=== PATIENT | female | born 1960 | race Caucasian/White ===

== ENCOUNTER 2020-07-02 18:28 | Inpatient (IN) | payer OTHER, SELFPAY ==
[2020-07-02 19:23] VITALS: BP 101/62; PULSE 112; RESP 14; TEMP 36.7; O2SAT 95; BMI 21.2
--- NOTE | 2020-07-02 20:28 | XRR_ITS ---
PROCEDURE INFORMATION: Exam: XR Chest, 1 View Exam date and time: 07/02/2020 9:56 PM Age: 59 years old Clinical indication: Other: AMS; Patient HX: PT unable to give history TECHNIQUE: Imaging protocol: XR of the chest Views: 1 view. COMPARISON: No relevant prior studies available. FINDINGS: Lungs: Unremarkable. No consolidation. Pleural space: Unremarkable. No pleural effusion. No pneumothorax. Heart/Mediastinum: Unremarkable. No cardiomegaly. Bones/joints: Unremarkable. XR/XR chest 1V portable [id number] IMPRESSION: No acute findings.
--- NOTE | 2020-07-02 20:28 | CTR_ITS ---
PROCEDURE INFORMATION: Exam: CT Head Without Contrast Exam date and time: 07/02/2020 8:35 PM Age: 59 years old Clinical indication: Altered mental status/memory loss; Confusion or disorientation; Patient HX: Ams/dementia/non-verbal TECHNIQUE: Imaging protocol: Computed tomography of the head without contrast. Radiation optimization: All CT scans at this facility use at least one of these dose optimization techniques: automated exposure control; mA and/or kV adjustment per patient size (includes targeted exams where dose is matched to clinical indication); or iterative reconstruction. COMPARISON: No relevant prior studies available. RADIATION DOSE METRICS: Total DLP (mGy-cm): 752.59 FINDINGS: Brain: No CT evidence for acute ischemia, mass or hemorrhage. Generalized sulcal widening and ventricular enlargement are due to white matter volume loss which is advanced for the patient's age. Cerebral ventricles: Enlargement due to white matter volume loss. Bones/joints: Unremarkable. No acute fracture. Paranasal sinuses: Several mucous retention cysts and/or polyps in the paranasal sinuses. Mastoid air cells: Visualized mastoid air cells are well aerated. Soft tissues: Unremarkable. CT/CT head wo con* [id number] IMPRESSION: 1. No acute intracranial findings. 2. Atrophy Radiation Dose CTDIVOL = (mGy): DLP = 752.59 (mGy-cm)
--- NOTE | 2020-07-02 20:29 | ECG_ITS ---
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 Measurements Intervals [place] Rate: 70 P: 73 CA: 186 QRS: 72 QRSD: 66 T: 57 QT: 377 QTc: 408 Interpretive Statements SINUS RHYTHM POSSIBLE RIGHT ATRIAL ENLARGEMENT [0.25mV P WAVE] MODERATE T-WAVE ABNORMALITY, CONSIDER ANTERIOR ISCHEMIA [-0.1+ mV T WAVE IN V3/V4] MODERATE T-WAVE ABNORMALITY, CONSIDER INFERIOR ISCHEMIA [-0.1+ mV T WAVE IN II/aVF] No previous ECG available for comparison Electronically Signed On 07-03-2020 22:20:35 OCCUPATIONAL HEALTH SPECIALIST by Georgette Jasso M.D. [id number]
[2020-07-02] MEDS: sodium chloride 0.9% 1,000 ML 999 ML IV (21:05)
[2020-07-02 21:13] LABS: Basophils # 0.1 10^3/uL (0.0-0.1); Basophils % 0.6 %; Eosinophils % 0.1 %; Hematocrit 56.3 % (37.0-47.0); Hemoglobin 17.2 g/dL (11.5-15.3); Lymphocytes # 1.3 10^3/uL (0.8-4.8); Lymphocytes % 16.2 %; Mean Corpuscular HGB Conc 30.6 g/dL (30.0-36.0); Mean Corpuscular Hemoglobin 27.2 pg (28.0-34.0); Mean Corpuscular Volume 89.1 fL (81-99); Mean Platelet Volume 9.7 fL (7.4-10.4); Monocytes # 0.6 10^3/uL (0.2-0.9); Monocytes % 7.5 %; Neutrophils # 6.14 10^3/uL (1.8-7.7); Neutrophils % 75.4 %; Nucleated Red Blood Cells % 0 %; Platelet Count 347 10^3/cmm (130-400); Red Blood Count 6.32 10^6/uL (4.1-5.3); Red Cell Distribution Width 13.5 % (12.1-15.1); White Blood Count 8.2 10^3/uL (4.0-10.0)
[2020-07-02 21:26] LABS: Glucose Point of Care 102 mg/dL (70-110)
[2020-07-02 21:35] LABS: Lactic Sepsis W/Reflex 1.6 mmol/L (0.5-2.2)
[2020-07-02 21:36] LABS: Alanine Aminotransferase 14 U/L (0-33); Albumin Level 4.2 g/dL (3.5-5.2); Alkaline Phosphatase 66 IU/L (35-105); Aspartate Amino Transferase 13 U/L (0-32); Blood Urea Nitrogen 27 mg/dL (6-20); Calcium 9.9 mg/dL (8.5-10.5); Carbon Dioxide 25 mmol/L (22-29); Chloride 120 mmol/L (98-107); Globulin 2.9 g/dL (1.3-4.6); Glomerular Filtration Rate 56.7 mL/min (90-130); Glucose 124 mg/dL (65-115); Lipase 26 U/L (13-60); Magnesium 2.8 mg/dL (1.7-2.3); Osmolality Calculated 337 mOsm/kg (285-295); Sodium 160 mmol/L (136-145); Total Bilirubin 0.5 mg/dL (0.15-1.2); Total Protein 7.1 g/dL (6.6-8.7)
[2020-07-02 21:39] LABS: Anion Gap 18.9 (5-19); Potassium 3.9 mmol/L (3.5-5.1); Troponin(5th) Baseline 30 ng/L (0-10)
[2020-07-02 21:55] VITALS: BP 115/57; PULSE 74; RESP 17; O2SAT 98
--- NOTE | 2020-07-02 22:14 | ED_ITS ---
HPI - Altered Mental Status General: Chief Complaint: Altered Mental Status Stated Complaint: hasn't eatin or drank Time Seen by Provider: 07/02/20 20:15 History of Present Illness: HPI narrative: This patient is a 59-year-old female who presents today with her as her historian. She has a history of frontal temporal dementia which has been quite severe and progressive. She is nonverbal and is cared for at home by her and [id number]. She had been doing pretty well up until Thursday of this past week when she had a sudden change in her mental status. She suddenly would not eat and has not been able to get up and walk around like she normally does. She is been incontinent of urine and the urine has had a foul odor. She has been on antibiotics for that fairly recently. She also has a couple of teeth that have cavities in them and was on antibiotics for that before the UTI. She has not been able to have this fixed because the dentist was not able to get her to be still or cooperate and she is can have to have them done under sedation. Her said that even when she is doing well they have to feed her as she cannot coordinate the effort to eat. Normally though she has a good appetite and eats well and has no trouble swallowing. He said in these last several days they have put food in her mouth but it just falls back out. She does not seem interested at all in eating. She has taken just a little bit of Pedialyte today. She has not had a fever. She has not had a cough or shortness of breath. She does not act like she is in pain but her notes that she has a frighteningly high pain tolerance. complaint: altered mental status and weakness Onset (ago): day(s) (5) Timing confirmed by: spouse and caregiver Severity: severe Consistency of symptoms: Getting Worse Review of Systems General: Reports: ROS unobtainable due to medical condition PFSH ED PFSH: Medical History (Updated 07/02/20 @ 22:17 by Demi Connors MD) Frontotemporal dementia Hypothyroid Physical Exam Const: COMMON NORMALS: no acute distress HENMT: HEAD & SCALP: normal to inspection FACE & SINUS IMAGES: 1. Tenderness and swelling MOUTH: other (Was not able to get the patient to open her mouth to examine her teeth or t) TEETH & GINGIVA: Yes other (I would not) THROAT: other (The submandibular area is soft and nontender) Eye: GENERAL EYE: appearance normal, both eyes and all related structures Neck/C-Spine: COMMON NORMALS: supple, no meningeal signs and no JVD Chest: COMMONS NORMALS: normal inspection of the chest Resp: COMMON NORMALS: normal respiratory effort, No use of accessory muscles and clear to auscultation bilaterally AUSCULTATION: clear to auscultation bilaterally Cardio: COMMON NORMALS: no JVD, regular rate, regular rhythm and No murmurs present (Cardio) RATE: regular rate RHYTHM: regular rhythm GI: COMMON NORMALS: Normal to inspection, nondistended, normoactive bowel sounds present, Soft to palpation and non-tender INSPECTION: Yes normal to inspection AUSCULTATION: Yes normoactive bowel sounds PALPATION: Yes Soft to palpation Back/Pelvis: COMMON NORMALS: thoracic and lumbar spine normal to inspection Extremity: COMMON NORMALS: normal to inspection Neuro: MENINGEAL SIGNS: Yes no meningeal signs SPEECH: Other neuro speech findings (Nonverbal) GAIT: Yes Unable to assess gait MOTOR EXAM: No no tremor noted and Other motor observations present (She is noted to move both upper extremities and both lower extremities. Sh) Psych: COMMON NORMALS: mental status grossly normal, cooperative and normal affect Skin: COMMON NORMALS: no rashes or lesions noted and turgor normal GENERAL SKIN EXAM: no rashes or lesions noted and turgor normal Course ED course: Patient will be admitted to the ICU. Her sodium is 160. Chloride is 120. Renal function is normal. White count is normal. She also has evidence of a UTI. She will be given half-normal saline at 150 mL/h for slow correction of her sodium elevation. I called and spoke to her Bill at [phone]. I let them know that she would be staying overnight and what the plan of care was. Vital Signs: Vital signs: Vital Signs Temperature 98.0 F 07/02/20 19:23 Pulse Rate 74 07/02/20 22:43 Respiratory Rate 17 07/02/20 22:43 Blood Pressure 119/57 07/02/20 22:43 Pulse Oximetry 96 07/02/20 22:43 MDM - Altered Mental Status Lab Data: Labs: Lab Results 07/02/20 07/02/20 07/02/20 Range/Units 21:00 21:00 21:00 WBC 8.2 (4.0-10.0) 10^3/ uL RBC 6.32 H (4.1-5.3) 10^6/u L Hgb 17.2 H (11.5-15.3) g/dL Hct 56.3 H (37.0-47.0) % MCV 89.1 (81-99) fL MCH 27.2 L (28.0-34.0) pg MCHC 30.6 (30.0-36.0) g/dL RDW 13.5 (12.1-15.1) % Plt Count 347 (130-400) 10^3/c mm MPV 9.7 (7.4-10.4) fL Neut % (Auto) 75.4 % Lymph % (Auto) 16.2 % [place] % (Auto) 7.5 % Eos % (Auto) 0.1 % Baso % (Auto) 0.6 % Neut # (Auto) 6.14 (1.8-7.7) 10^3/u L Lymph # (Auto) 1.3 (0.8-4.8) 10^3/u L [place] # (Auto) 0.6 (0.2-0.9) 10^3/u L Eos # (Auto) 0.0 (0.0-0.8) 10^3/u L Baso # (Auto) 0.1 (0.0-0.1) 10^3/u L Nucleated RBC % (a uto) 0 % Nucleated RBCs # 0.0 /100WBC Sodium 160 H (136-145) mmol/L Potassium 3.9 (3.5-5.1) mmol/L Chloride 120 H (98-107) mmol/L Carbon Dioxide 25 (22-29) mmol/L Anion Gap 18.9 (5-19) BUN 27 H (6-20) mg/dL Creatinine 1.0 H (0.5-0.9) mg/dL GFR Calculation 56.7 L (90-130) mL/min Glucose 124 H (65-115) mg/dL POC Glucose (70-110) mg/dL Calculated Osmolal ity 337 H (285-295) mOsm/k g Lactic Acid 1.6 (0.5-2.2) mmol/L Calcium 9.9 (8.5-10.5) mg/dL Magnesium 2.8 H (1.7-2.3) mg/dL Total Bilirubin 0.5 (0.15-1.2) mg/dL AST 13 (0-32) U/L ALT 14 (0-33) U/L Alkaline Phosphata se 66 (35-105) IU/L Troponin T Baselin e (0-10) ng/L Total Protein 7.1 (6.6-8.7) g/dL Albumin 4.2 (3.5-5.2) g/dL Globulin 2.9 (1.3-4.6) g/dL Lipase 26 (13-60) U/L TSH (0.27-4.20) uIU/ mL Free T4 (0.82-1.77) ng/d L Urine Color (Yellow) Urine Appearance (CLEAR) Urine pH (5-7) Ur Specific Gravit y (1.005-1.030) Urine Protein (Negative) Urine Glucose (UA) (Normal) Urine Ketones (Negative) Urine Blood (Negative) Urine Nitrate (Negative) Urine Bilirubin (Negative) Urine Urobilinogen (Negative) mg/dL Ur Leukocyte Stephanie ase (Negative) Urine RBC (0-2) /hpf Urine WBC (0-5) /hpf Ur Squamous Epith Cells (0-5) /hpf Amorphous Sediment Urine Bacteria (NONE) /hpf Urine Mucus /hpf 07/02/20 07/02/20 07/02/20 Range/Units 21:00 21:00 21:24 WBC (4.0-10.0) 10^3/ uL RBC (4.1-5.3) 10^6/u L Hgb (11.5-15.3) g/dL Hct (37.0-47.0) % MCV (81-99) fL MCH (28.0-34.0) pg MCHC (30.0-36.0) g/dL RDW (12.1-15.1) % Plt Count (130-400) 10^3/c mm MPV (7.4-10.4) fL Neut % (Auto) % Lymph % (Auto) % [place] % (Auto) % Eos % (Auto) % Baso % (Auto) % Neut # (Auto) (1.8-7.7) 10^3/u L Lymph # (Auto) (0.8-4.8) 10^3/u L [place] # (Auto) (0.2-0.9) 10^3/u L Eos # (Auto) (0.0-0.8) 10^3/u L Baso # (Auto) (0.0-0.1) 10^3/u L Nucleated RBC % (a uto) % Nucleated RBCs # /100WBC Sodium (136-145) mmol/L Potassium (3.5-5.1) mmol/L Chloride (98-107) mmol/L Carbon Dioxide (22-29) mmol/L Anion Gap (5-19) BUN (6-20) mg/dL Creatinine (0.5-0.9) mg/dL GFR Calculation (90-130) mL/min Glucose (65-115) mg/dL POC Glucose 102 (70-110) mg/dL Calculated Osmolal ity (285-295) mOsm/k g Lactic Acid (0.5-2.2) mmol/L Calcium (8.5-10.5) mg/dL Magnesium (1.7-2.3) mg/dL Total Bilirubin (0.15-1.2) mg/dL AST (0-32) U/L ALT (0-33) U/L Alkaline Phosphata se (35-105) IU/L Troponin T Baselin e 30 H (0-10) ng/L Total Protein (6.6-8.7) g/dL Albumin (3.5-5.2) g/dL Globulin (1.3-4.6) g/dL Lipase (13-60) U/L TSH 2.63 (0.27-4.20) uIU/ mL Free T4 1.12 (0.82-1.77) ng/d L Urine Color (Yellow) Urine Appearance (CLEAR) Urine pH (5-7) Ur Specific Gravit y (1.005-1.030) Urine Protein (Negative) Urine Glucose (UA) (Normal) Urine Ketones (Negative) Urine Blood (Negative) Urine Nitrate (Negative) Urine Bilirubin (Negative) Urine Urobilinogen (Negative) mg/dL Ur Leukocyte Stephanie ase (Negative) Urine RBC (0-2) /hpf Urine WBC (0-5) /hpf Ur Squamous Epith Cells (0-5) /hpf Amorphous Sediment Urine Bacteria (NONE) /hpf Urine Mucus /hpf 07/02/ Range/Units 22:23 WBC (4.0-10.0) 10^3/ uL RBC (4.1-5.3) 10^6/u L Hgb (11.5-15.3) g/dL Hct (37.0-47.0) % MCV (81-99) fL MCH (28.0-34.0) pg MCHC (30.0-36.0) g/dL RDW (12.1-15.1) % Plt Count (130-400) 10^3/c mm MPV (7.4-10.4) fL Neut % (Auto) % Lymph % (Auto) % [place] % (Auto) % Eos % (Auto) % Baso % (Auto) % Neut # (Auto) (1.8-7.7) 10^3/u L Lymph # (Auto) (0.8-4.8) 10^3/u L [place] # (Auto) (0.2-0.9) 10^3/u L Eos # (Auto) (0.0-0.8) 10^3/u L Baso # (Auto) (0.0-0.1) 10^3/u L Nucleated RBC % (a uto) % Nucleated RBCs # /100WBC Sodium (136-145) mmol/L Potassium (3.5-5.1) mmol/L Chloride (98-107) mmol/L Carbon Dioxide (22-29) mmol/L Anion Gap (5-19) BUN (6-20) mg/dL Creatinine (0.5-0.9) mg/dL GFR Calculation (90-130) mL/min Glucose (65-115) mg/dL POC Glucose (70-110) mg/dL Calculated Osmolal ity (285-295) mOsm/k g Lactic Acid (0.5-2.2) mmol/L Calcium (8.5-10.5) mg/dL Magnesium (1.7-2.3) mg/dL Total Bilirubin (0.15-1.2) mg/dL AST (0-32) U/L ALT (0-33) U/L Alkaline Phosphata se (35-105) IU/L Troponin T Baselin e (0-10) ng/L Total Protein (6.6-8.7) g/dL Albumin (3.5-5.2) g/dL Globulin (1.3-4.6) g/dL Lipase (13-60) U/L TSH (0.27-4.20) uIU/ mL Free T4 (0.82-1.77) ng/d L Urine Color Yellow (Yellow) Urine Appearance Cloudy (CLEAR) Urine pH 5.0 (5-7) Ur Specific Gravit y 1.020 (1.005-1.030) Urine Protein Trace (Negative) Urine Glucose (UA) Norm (Normal) Urine Ketones 1+ H (Negative) Urine Blood 2+ H (Negative) Urine Nitrate Positive H (Negative) Urine Bilirubin Neg (Negative) Urine Urobilinogen Norm (Negative) mg/dL Ur Leukocyte Stephanie ase Trace H (Negative) Urine RBC 0-4 H (0-2) /hpf Urine WBC 25-40 H (0-5) /hpf Ur Squamous Epith Cells None (0-5) /hpf Amorphous Sediment Not Reportable Urine Bacteria 3+ H (NONE) /hpf Urine Mucus 2+ /hpf Discharge Plan Discharge Condition: Good Prescriptions: No Action olanzapine 2.5 mg tablet 2.5 mg PO DAILY RF: 0 levothyroxine [Euthyrox] 25 mcg tablet 12.5 mcg PO DAILY RF: 0 Coding Level of Care Code ED Waiter/Waitress Counter for Chg Fwd Exam Comprehensive
[2020-07-02 22:34] LABS: Free T4 Free Thyroxine 1.12 ng/dL (0.82-1.77); Thyroid Stimulating Hormone 2.63 uIU/mL (0.27-4.20)
[2020-07-02 22:43] VITALS: BP 119/57; PULSE 74; RESP 17; O2SAT 96
[2020-07-02 22:56] LABS: Glucose Urine UA Norm (Normal); Protein Urine Trace (Negative); Urine Appearance Cloudy (CLEAR); Urine Color Yellow (Yellow)
[2020-07-02 22:57] LABS: Add Urine Microscopic? YES; Bilirubin Urine Neg (Negative); Blood Urine 2+ (Negative); Ketones Urine 1+ (Negative); Leukocyte Esterase Urine Trace (Negative); Nitrate Urine Positive (Negative); RBC Urine 0-4 /hpf (0-2); Urobilinogen Urine Norm (Negative)
[2020-07-02 22:58] LABS: Add Urine Culture? Yes; Bacteria Urine 3+ /hpf; Mucus Urine 2+ /hpf; WBC Urine 25-40 /hpf (0-5)
[2020-07-02 23:34] LABS: Glucose Point of Care 118 mg/dL (70-110)
[2020-07-03] VITALS (52 sets, daily range): BP systolic 79–144; BP diastolic 50–107; PULSE 40–150; RESP 12–22; TEMP 36.4–37.1; O2SAT 89–100
[2020-07-03] MEDS: cefTRIAXone 1,000 MG in sodium chloride 0.9% (plus) 50 ML 100 MG IV
[2020-07-03 00:36] LABS: Troponin 5 2HR 33.25 ng/L (0-10); Troponin 5 2HR Delta 3.25 ABS# (0-10)
[2020-07-03] MEDS: sodium chloride 0.45% 1,000 ML 150 ML IV ×4 (01:03→14:12)
--- NOTE | 2020-07-03 01:11 | PC.NURSE ---
Report called to Angie GUTIERREZ in ICU
--- NOTE | 2020-07-03 01:36 | P.HP_ITS ---
Providers/Chief Complaint Admitting Physician: Horace Miner MD Chief Complaint: hasn't eatin or drank History of Present Illness Bee Mcneal is a 59 year old female with past medical history of hypothyroid, progressively worsening frontotemporal dementia, nonverbal at baseline,cared for at home by her and [id number]. She had been doing pretty well up until Thursday of this past week when she had a sudden change in her mental status. She suddenly would not eat and has not been able to get up and walk around like she normally does. She is been incontinent of urine and the urine has had a foul odor.She has been on antibiotics for that fairly recently. She also has a couple of teeth that have cavities in them and was on antibiotics for that before the UTI. She has not been able to have this fixed because the d entist was not able to get her to be still or cooperate and she is can have to have them done under sedation. Her said that even when she is doing well they have to feed her as she cannot coordinate the effort to eat. Normally though she has a good appetite and eats well and has no trouble swallowing. He said in these last several days they have put food in her mouth but it just falls back out. Upon arrival in the ER she was worked up for acute encephalopathy. ECA Course: CT head without contrast: No acute intracranial findings. EKG: SINUS RHYTHM POSSIBLE RIGHT ATRIAL ENLARGEMENT [0.25mV P WAVE] MODERATE T-WAVE ABNORMALITY, CONSIDER ANTERIOR ISCHEMIA [-0.1+ mV T WAVE IN V3/V4] MODERATE T-WAVE ABNORMALITY, CONSIDER INFERIOR ISCHEMIA [-0.1+ mV T WAVE IN II/aVF] X-ray chest: No acute infiltrates, no pulmonary vascular congestion BMP: Serum sodium: 160 TSH: 2.6 UA: Nitrite positive, leukocyte Estrace positive, WBC: 25-40 Review of Systems Narrative: Review of system could not be obtained. Medications/Allergies Home Medications Medication Instructions Recorded Confirmed Last Taken Type levothyroxine [Euthyrox] 12.5 mcg PO DAILY 07/02/20 07/02/20 Unknown History olanzapine 2.5 mg PO DAILY 07/02/20 07/02/20 07/01/20 History Allergies Allergy/AdvReac Type Severity Reaction Status Date / Time aspirin Allergy Unknown Verified 07/02/20 19:14 Sulfa (Sulfonamide Allergy Unknown Verified 07/02/20 19:14 Antibiotics) PFSH Acute PFSH: Medical History Frontotemporal dementia Hypothyroid Vitals/I&O/Wt Last Vital Signs Temp 98.0 F 07/02/20 19:23 Pulse 91 07/03/20 01:11 Resp 18 07/03/20 01:11 BP 134/107 07/03/20 01:11 Pulse Ox 97 07/03/20 01:11 07/02/20 07/02/20 07/03/20 14:59 22:59 06:59 Intake Total 1050 / 1050 Balance 1050 / 1050 Weight last 48 hrs Weight 49.442 kg Physical Exam HENMT: COMMON NORMALS: normocephalic and atraumatic Eye: COMMON NORMALS: no scleral icterus GENERAL EYE: appearance normal, both eyes and all related structures Chest: COMMONS NORMALS: normal inspection of the chest and normal palpation of entire chest wall CHEST: Yes Symmetrical chest wall rise Resp: COMMON NORMALS: normal respiratory effort, No retractions, No use of accessory muscles and clear to auscultation bilaterally EFFORT & INSPECTION: Yes symmetric chest movement AUSCULTATION: clear to auscultation bilaterally Cardio: COMMON NORMALS: regular rate, regular rhythm, S1 normal heart sound present, S2 normal heart sound present, No gallops present (Cardio), No murmurs present (Cardio), No rub (Cardio) and Peripheral pulses 2+ throughout RATE: regular rate RHYTHM: regular rhythm HEART SOUNDS: S1 normal heart sound present and S2 normal heart sound present PERIPHERAL PULSES: Peripheral pulses 2+ throughout GI: COMMON NORMALS: Normal to inspection, nondistended, normoactive bowel sounds present, Soft to palpation, non-tender, No hepatosplenomegaly present and no masses AUSCULTATION: Yes normoactive bowel sounds PALPATION: Yes Soft to palpation and Yes No hepatosplenomegaly present RECTAL EXAM: deferred Extremity: COMMON NORMALS: no clubbing, cyanosis or edema and no pedal edema Urinary Catheter Management^: Dobbins: Cath Placed During This Visit: yes Reason for Continuing Indwelling Catheter: Acute Urinary Retention or Obstruction Urinary Catheter Date of Insertion: 07/02/20 Urinary Catheter Time of Insertion: 22:32 Data : 07/03/20 02:55 07/03/20 02:55 A&P Assessment and plan (1) Acute encephalopathy: Acute metabolic encephalopathy likely secondary to hypernatremia secondary to severe volume depletion secondary to poor oral intake. Currently on 150 cc/h half-normal saline. Monitor BMP every 4 hours. Status: Acute (2) Hypothyroidism: Continue levothyroxine 12.5 mcg Status: Acute (3) Acute hypernatremia: Plan as # 1 Status: Acute (4) UTI (urinary tract infection): Continue ceftriaxone 1 g IV every 24 hours daily Status: Acute (5) Frontotemporal dementia: Status: Acute Additional A&P Information DVT prophylaxis: Lovenox 40 subcu daily CODE STATUS: Full code Disposition: Home Attestations Medical Necessity Statement*: Patient needs to be in hospital for management of acute encephalopathy. Anticipated length of stay greater than 2 midnights. Coding Level of Care Code Acute Armor Reconnaissance Vehicle Driver for [facility] Fwd Diagnoses Acute encephalopathy G93.40 Hypothyroidism E03.9 Acute hypernatremia E87.0 UTI (urinary tract infection) N39.0 Frontotemporal dementia G31.09; F02.80
[2020-07-03] MEDS: enoxaparin 40 mg/0.4 mL Syringe SUBCUT (02:49)
[2020-07-03 03:07] LABS: Basophils # 0.1 10^3/uL (0.0-0.1); Basophils % 0.8 %; Hematocrit 51.1 % (37.0-47.0); Hemoglobin 15.4 g/dL (11.5-15.3); Lymphocytes # 1.4 10^3/uL (0.8-4.8); Lymphocytes % 17.5 %; Mean Corpuscular HGB Conc 30.1 g/dL (30.0-36.0); Mean Corpuscular Hemoglobin 27.1 pg (28.0-34.0); Mean Corpuscular Volume 89.8 fL (81-99); Mean Platelet Volume 9.5 fL (7.4-10.4); Monocytes # 0.6 10^3/uL (0.2-0.9); Monocytes % 7.5 %; Neutrophils # 5.75 10^3/uL (1.8-7.7); Neutrophils % 73.8 %; Nucleated Red Blood Cells % 0 %; Platelet Count 337 10^3/cmm (130-400); Red Blood Count 5.69 10^6/uL (4.1-5.3); Red Cell Distribution Width 13.5 % (12.1-15.1); White Blood Count 7.8 10^3/uL (4.0-10.0)
[2020-07-03 03:30] LABS: Troponin 5 6HR 32.95 ng/L (0-10); Troponin 5 6HR Delta 2.95 ng/L (0-12)
[2020-07-03 03:33] LABS: Anion Gap 18.3 (5-19); Blood Urea Nitrogen 22 mg/dL (6-20); Calcium 9.1 mg/dL (8.5-10.5); Carbon Dioxide 25 mmol/L (22-29); Chloride 123 mmol/L (98-107); Glomerular Filtration Rate 64.1 mL/min (90-130); Glucose 109 mg/dL (65-115); Osmolality Calculated 338 mOsm/kg (285-295); Potassium 4.3 mmol/L (3.5-5.1)
[2020-07-03 03:39] LABS: Procalcitonin 0.13 ng/mL (0-0.5)
[2020-07-03 03:41] LABS: Sodium 162 mmol/L (136-145)
--- NOTE | 2020-07-03 08:58 | P.PN_ITS ---
Subjective Subjective: Interval history: Nonverbal, uncooperative. Vitals/I&O/Wt Last Vital Signs Temp 98.6 F 07/03/20 04:00 Pulse 60 07/03/20 08:34 Resp 19 H 07/03/20 07:00 BP 118/55 07/03/20 07:00 Pulse Ox 95 07/03/20 08:34 07/02/20 07/03/20 07/03/20 22:59 06:59 14:59 Intake Total 1050 / 1050 Output Total 300 / 300 Balance 750 / 750 Weight last 48 hrs Weight 49.442 kg Physical Exam Const: COMMON NORMALS: no acute distress GENERAL APPEARANCE: frail appearing; not cooperative ORIENTATION/CONSCIOUSNESS: Yes awake and Yes confused HENMT: COMMON NORMALS: oropharynx normal Neck/C-Spine: COMMON NORMALS: no JVD Resp: COMMON NORMALS: normal respiratory effort and clear to auscultation bilaterally AUSCULTATION: clear to auscultation bilaterally Cardio: COMMON NORMALS: no JVD, regular rhythm, S1 normal heart sound present, S2 normal heart sound present and No murmurs present (Cardio) RHYTHM: regular rhythm HEART SOUNDS: S1 normal heart sound present and S2 normal heart sound present GI: COMMON NORMALS: Normal to inspection, nondistended, normoactive bowel sounds present, Soft to palpation and non-tender PALPATION: Yes Soft to palpation Extremity: COMMON NORMALS: no joint enlargement and no pedal edema Neuro: COMMON NORMALS: moves all extremities Skin: COMMON NORMALS: no rashes or lesions noted GENERAL SKIN EXAM: no rashes or lesions noted Urinary Catheter Management^: Dobbins: Cath Placed During This Visit: yes Reason for Continuing Indwelling Catheter: Acute Urinary Retention or Obstruction Urinary Catheter Date of Insertion: 07/02/20 Urinary Catheter Time of Insertion: 22:32 Data : 07/03/20 02:55 07/03/20 02:55 A&P Assessment and plan (1) Acute encephalopathy: She is awake, not cooperative for me. Will see if can be assessed by speech therapy. Acute encephalopathy, metabolic and infection related. Continue treatment of acute hypernatremia, dehydration. UTI. Discussed with her , acute encephalopathy superimposed on advanced dementia. Poor oral intake at baseline. Currently on 150 cc/h half-normal saline. Recheck sodium. Monitor levels and will adjust fluids based on findings. Status: Acute (2) Hypothyroidism: Continue levothyroxine 12.5 mcg Status: Acute (3) Acute hypernatremia: Plan as # 1 Status: Acute (4) UTI (urinary tract infection): Continue ceftriaxone 1 g IV every 24 hours daily. Follow urine culture. Her states that they had recently seen a nurse practitioner at [facility], and that they had gotten a phone call regarding starting antibiotics for UTI, although he states that there were difficulties with collecting culture, and antibiotics were going to be empiric. Status: Acute (5) Frontotemporal dementia: She follows with a neurologist Dr. Stapleton. Status: Acute Additional A&P Information DVT prophylaxis: Lovenox 40 subcu daily CODE STATUS: Full code, discussed w , he is not sure that full code would be an appropriate code status given her advanced dementia. He is going to think about this further. Disposition: Home Attestations Medical Necessity Statement*: Continue admission for assessment management of acute encephalopathy on chronic dementia, severe hypernatremia, dehydration, UTI. Coding Level of Care Code Acute Tip Puncher for [facility] [place] Diagnoses Acute encephalopathy G93.40 Hypothyroidism E03.9 Acute hypernatremia E87.0 UTI (urinary tract infection) N39.0 Frontotemporal dementia G31.09; F02.80
[2020-07-03] MEDS: levothyroxine 25 mcg Tablet 12.5 MCG PO (09:02)
[2020-07-03] MEDS: OLANZapine 5 mg TABLET 2.5 MG PO (09:02)
--- NOTE | 2020-07-03 09:37 | PC.CHAP ---
Pastoral Care Encounter/Spiritual Assessment Type of Contact [] Declined personal loan specialist visit [] Patient/Family/Request visit [] Outpatient visit [] Follow-up visit [] Physician referral [] Code/Alert [] Routine visit [] Staff referral [] Actively dying [] Patient sleeping [] Family support [] [] Out of room [] Palliative care [] [] Receiving care in room [] Pre-surgical visit [] Trauma [] Long length of stay [] ICU visit [] Other: Relational/Emotional Strength [] Patient feels connected with others/family/visitors/staff [] Distress [] Loneliness/isolation [] Abandonment Spirituality of Patient [] Person of [place] [] Attends [facility] of their [place] [] Believes in Prayer [] Reads Bible or Yazdanism materials [] There are Spiritual issues to be addressed Right Of Way Supervisor Interventions [x] Prayer [] Active listening [] Non-anxious presence [] Spiritual/emotional support [] Crisis/trauma care [] Spiritual counseling [] Bereavement support [] Provided bereavement packet [] Provided Bible/devotional materials [] Provided toy/stuffed animal, coloring book to patient or family member [] Provided Communion [] Anointing/[place] [] Salvation [x] Completed spiritual assessment [] Other: Impact on Illness or Injury [] Angry [] Fearful [] Anxious [] Often cries [] Exhaustion [] Unable to work [] Unable to attend holiness [] Unable to walk/stand [] Unable to read [] Unable to drive [] Unable to eat/drink [] Unable to sleep [] Unable to be with family [] Patient intubated [] Other: Summary Time spent with patient
[2020-07-03 10:16] LABS: Sodium 157 mmol/L (136-145)
--- NOTE | 2020-07-03 15:14 | ECG_ITS ---
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 Measurements Intervals [place] Rate: 54 P: 70 [place]: 191 QRS: 48 QRSD: 74 T: -59 QT: 424 QTc: 404 Interpretive Statements SINUS BRADYCARDIA MODERATE T-WAVE ABNORMALITY, CONSIDER ANTEROLATERAL ISCHEMIA [-0.1+ mV T WAVE IN V3-V6] Compared to ECG 07/02/2020 22:07:21 Sinus rhythm no longer present T-wave abnormality still present Possible ischemia still present Electronically Signed On 07-03-2020 22:28:30 CLIENT INSIGHTS CONSULTANT by Georgette Jasso M.D. [id number]
[2020-07-03] MEDS: atropine 0.1 mg/mL Syr 10 mL 0.5 MG IVP (15:46)
[2020-07-03 16:31] LABS: Anion Gap 14.6 (5-19); Blood Urea Nitrogen 20 mg/dL (6-20); Calcium 8.7 mg/dL (8.5-10.5); Carbon Dioxide 24 mmol/L (22-29); Chloride 122 mmol/L (98-107); Glomerular Filtration Rate 73.4 mL/min (90-130); Glucose 91 mg/dL (65-115); Magnesium 2.3 mg/dL (1.7-2.3); Osmolality Calculated 326 mOsm/kg (285-295); Potassium 3.6 mmol/L (3.5-5.1); Sodium 157 mmol/L (136-145)
--- NOTE | 2020-07-03 20:43 | PC.NURSE ---
Received bed side shift report from off going nurse. Pt's plan of care reviewed. Pt resting in bed. Respirations are even and unlabored. No s/sx of distress noted. Pt appears to be resting comfortably at this time. Pt is confused and alert only to self. Pt acknowledges staff but is unable to follow commands. Movement and intact sensation x's 4 extremities. Pt continues to be bradycardic ranging between 40 and 53bpm. Pt is asymtomatic. During day shift off going nurse stated that pt's heart rate dropped in the 30's and became hypotensive. Pt was given 0.5mg of atropine IV x's 1 with improvement in vitals. Bed in lowest and locked position, call light within reach, x's 3 rails up. Will continue to monitor pt.
[2020-07-03 20:46] LABS: Sodium 153 mmol/L (136-145)
--- NOTE | 2020-07-03 21:22 | PC.NURSE ---
Pt's sodium dropped from 162 to [address] Miner notified. No changes in pt's status at this time.
[2020-07-04] VITALS (25 sets, daily range): BP systolic 86–156; BP diastolic 46–101; PULSE 36–93; RESP 8–22; TEMP 36.4–37.7; O2SAT 86–100; BMI 21.5
[2020-07-04] MEDS: cefTRIAXone 1,000 MG in sodium chloride 0.9% (plus) 50 ML 100 MG IV ×2 (00:39→23:36)
[2020-07-04] MEDS: enoxaparin 40 mg/0.4 mL Syringe SUBCUT (00:39)
[2020-07-04 03:59] LABS: Basophils # 0.1 10^3/uL (0.0-0.1); Basophils % 1.2 %; Eosinophils % 0.6 %; Hemoglobin 14.1 g/dL (11.5-15.3); Lymphocytes # 1.7 10^3/uL (0.8-4.8); Lymphocytes % 25.6 %; Mean Corpuscular HGB Conc 30.7 g/dL (30.0-36.0); Mean Corpuscular Hemoglobin 27.2 pg (28.0-34.0); Mean Corpuscular Volume 88.8 fL (81-99); Mean Platelet Volume 10.2 fL (7.4-10.4); Monocytes # 0.5 10^3/uL (0.2-0.9); Monocytes % 7.6 %; Neutrophils % 64.6 %; Nucleated Red Blood Cells % 0 %; Platelet Count 282 10^3/cmm (130-400); Red Blood Count 5.18 10^6/uL (4.1-5.3); Red Cell Distribution Width 13.2 % (12.1-15.1); White Blood Count 6.8 10^3/uL (4.0-10.0)
[2020-07-04 04:32] LABS: Anion Gap 14.4 (5-19); Blood Urea Nitrogen 15 mg/dL (8-23); Calcium 8.9 mg/dL (8.5-10.5); Carbon Dioxide 26 mmol/L (22-29); Chloride 119 mmol/L (98-107); Glomerular Filtration Rate 73.2 mL/min (90-130); Glucose 78 mg/dL (65-115); Magnesium 2.4 mg/dL (1.7-2.3); Osmolality Calculated 322 mOsm/kg (285-295); Phosphorus 3.2 mg/dL (2.5-4.5); Potassium 3.4 mmol/L (3.5-5.1); Sodium 156 mmol/L (136-145); Thyroid Stimulating Hormone 2.63 uIU/mL (0.27-4.20)
[2020-07-04 04:36] LABS: INR 1.22 (0.8-1.2)
[2020-07-04 05:04] LABS: Estmated Average Glucose 105; Hemoglobin A1C 5.3 % (4.0-6.0)
[2020-07-04] MEDS: sodium chloride 0.45% 1,000 ML 75 ML IV ×2 (06:47→19:31)
[2020-07-04] MEDS: potassium chloride premix 100 ML 50 MEQ IV (06:47)
--- NOTE | 2020-07-04 07:53 | USCV_ITS ---
Bee Mcneal Age: 60 Gender: F : 1960 Exam Date: 07/04/2020 09:46 Ordering Phys: Santhosh Mcclain MD Technologist: Joseph Casarez [place] [facility] [place]: BRADYCARDIA, HYPOTENSION BP: 128 / 65 HR: 50 Rhythm: Sinus Technical Quality: Adequate MEASUREMENTS (Male / Female) Normal Values 2D ECHO LV Diastolic Diameter PLAX 3.2 cm 4.2 - 5.9 / 3.9 - 5.3 cm LV Systolic Diameter PLAX 2.0 cm IVS Diastolic Thickness 1.0 cm 0.6 - 1.0 / 0.6 - 0.9 cm IVS Systolic Thickness 1.4 cm LVPW Diastolic Thickness 1.3 cm 0.6 - 1.0 / 0.6 - 0.9 cm LVPW Systolic Thickness 1.4 cm LVOT Diameter 2.2 cm LV Ejection Fraction 2D Teich 59.4 % LV Ejection Fraction MOD 2C 75.1 % LV Ejection Fraction 2C AL 75.6 % LA Diameter 2.8 cm LA Width 3.5 cm LA Height 4.2 cm RA Width 3.0 cm RA Height 4.5 cm M-MODE LV Diastolic Diameter MM 5.0 cm 4.2 - 5.9 / 3.9 - 5.3 cm LV Systolic Diameter MM 3.3 cm LV Ejection Fraction MM Teich 64.4 % IVS Diastolic Thickness MM 1.0 cm 0.6 - 1.0 / 0.6 - 0.9 cm IVS Systolic Thickness MM 1.5 cm LVPW Diastolic Thickness MM 1.2 cm 0.6 - 1.0 / 0.6 - 0.9 cm LVPW Systolic Thickness MM 1.6 cm RV Diastolic Diameter MM 2.2 cm Aortic Annulus Diameter 3.1 cm LA Ao Ratio MM 1.1 MV E Point Septal Separation 0.6 cm DOPPLER AV Peak Velocity 100.0 cm/s LVOT Peak Velocity 97.0 cm/s AV Area Cont Eq vti 4.1 cm squared AV Area Cont Eq pk 3.6 cm squared MV Area PHT 5.0 cm squared Mitral E to A Ratio 2.9 MV E' Velocity 43.5 cm/s Mitral E to MV E' Ratio 11.6 Mitral E to LV E' Lateral Ratio 11.7 Mitral E to LV E' Septal Ratio 11.6 TR Peak Velocity 154.7 cm/s TR Peak Gradient 9.6 mmHg TV Peak E Velocity 74.0 cm/s Right Atrial Pressure 3.0 mmHg Pulmonary Artery Systolic Pressu 12.6 mmHg FINDINGS Left Ventricle Normal left ventricular size and systolic function with no regional wall motion abnormalities. LVEF is 60 to 65%. Concentric hypertrophy of left ventricle is noted. Normal diastolic filling pattern. Right Ventricle The right ventricle is normal in size and function. Right Atrium The right atrium is normal in size. Left Atrium The left atrium is normal in size. Mitral Valve Structurally normal mitral valve without significant stenosis or prolapse. There is no mitral regurgitation. Aortic Valve Structurally normal aortic valve without significant sclerosis or stenosis. There is no aortic regurgitation. Tricuspid Valve Structurally normal tricuspid valve without significant stenosis or regurgitation. Insufficient TR jet to calculate RVSP. Pulmonic Valve Not well-visualized. There is no pulmonic regurgitation. Pericardium Normal pericardium without effusion. Aorta Normal ascending aorta dimension. CONCLUSIONS LV systolic function is normal with EF of 60 to 65%. Normal diastolic function. No significant valvular heart disease is noted. No comparison studies are available. Cyrus Logan MD (Electronically Signed) Final Date: 04 July 2020 18:16 S
--- NOTE | 2020-07-04 08:38 | P.PN_ITS ---
Subjective Subjective: Interval history: She is awake, alert, not verbal, not cooperative. Moving her arms around in the air, looking around, occasionally lifting her legs. Vitals/I&O/Wt Last Vital Signs Temp 98.8 F 07/03/20 22:00 Pulse 50 L 07/04/20 07:24 Resp 14 07/04/20 04:00 BP 96/51 07/04/20 04:00 Pulse Ox 98 07/04/20 04:00 07/03/20 07/04/20 07/04/20 22:59 06:59 14:59 Output Total 375 / 375 400 / 775 Balance -375 / 1357.5 -400 / 957.5 Weight last 48 hrs Weight 50 kg Weight 49.442 kg Physical Exam Const: COMMON NORMALS: no acute distress GENERAL APPEARANCE: frail appearing; not cooperative ORIENTATION/CONSCIOUSNESS: Yes awake and Yes confused HENMT: COMMON NORMALS: oropharynx normal Neck/C-Spine: COMMON NORMALS: no JVD Resp: COMMON NORMALS: normal respiratory effort and clear to auscultation bilaterally AUSCULTATION: clear to auscultation bilaterally Cardio: COMMON NORMALS: no JVD, regular rhythm, S1 normal heart sound present, S2 normal heart sound present and No murmurs present (Cardio) RHYTHM: regular rhythm HEART SOUNDS: S1 normal heart sound present and S2 normal heart sound present GI: COMMON NORMALS: Normal to inspection, nondistended, normoactive bowel sounds present, Soft to palpation and non-tender PALPATION: Yes Soft to palpation Extremity: COMMON NORMALS: no joint enlargement and no pedal edema Neuro: COMMON NORMALS: moves all extremities Skin: COMMON NORMALS: no rashes or lesions noted GENERAL SKIN EXAM: no rashes or lesions noted Urinary Catheter Management^: Dobbins: Cath Placed During This Visit: yes Reason for Continuing Indwelling Catheter: Accurate Measurement of Urinary Output in Critically Ill Patients Urinary Catheter Date of Insertion: 07/02/20 Urinary Catheter Time of Insertion: 22:32 Data : 07/04/20 03:03 07/04/20 03:03 A&P Assessment and plan (1) Acute encephalopathy: Appears more alert today, appears to try to interact with her environment. Nonverbal, not cooperating, although this may be her baseline. Yesterday had to be made n.p.o. as could not cooperate enough with speech therapy for safe p.o. intake. Continue reassessments. Acute encephalopathy, metabolic and infection related. Continue treatment of acute hypernatremia, dehydration. UTI. Status: Acute (2) Acute hypernatremia: With good gradual improvement. IVF resumed. Monitor Na Status: Acute (3) Sinus bradycardia: Required 1 dose atropine yesterday. No block visible on EKG. Not on isak blocking agents. No evidence of ACS. Thyroid function is normal. Suspect this is related to her metabolic derangements. Status: Acute (4) UTI (urinary tract infection): Continue ceftriaxone 1 g IV every 24 hours daily. Follow urine culture. Her states that they had recently seen a nurse practitioner at [facility], and that they had gotten a phone call regarding starting antibiotics for UTI, although he states that there were difficulties with collecting culture, and antibiotics were going to be empiric. Status: Acute (5) Hypothyroidism: Continue levothyroxine 12.5 mcg Status: Acute (6) Frontotemporal dementia: She follows with a neurologist Dr. Stapleton. Status: Acute Additional A&P Information DVT prophylaxis: Lovenox 40 subcu daily CODE STATUS: Full code, discussed w , he is not sure that full code would be an appropriate code status given her advanced dementia. He is going to think about this further. Disposition: Home Attestations Medical Necessity Statement*: Continue admission for assessment management of acute encephalopathy superimposed on chronic dementia, metabolic abnormalities, with hypernatremia, bradycardia, UTI. Coding Level of Care Code Acute Code Machine Operator for [facility] Diagnoses Acute encephalopathy G93.40 Acute hypernatremia E87.0 Sinus bradycardia R00.1 UTI (urinary tract infection) N39.0 Hypothyroidism E03.9 Frontotemporal dementia G31.09; F02.80
[2020-07-04] MEDS: OLANZapine 5 mg TABLET 2.5 MG PO (08:58)
[2020-07-04 12:25] LABS: Sodium 155 mmol/L (136-145)
[2020-07-04 18:29] LABS: Sodium 152 mmol/L (136-145)
[2020-07-05] VITALS (20 sets, daily range): BP systolic 89–137; BP diastolic 49–70; PULSE 42–117; RESP 10–24; TEMP 36.6–37.3; O2SAT 71–100
[2020-07-05 01:23] LABS: Sodium 149 mmol/L (136-145)
[2020-07-05 06:17] LABS: Basophils # 0.1 10^3/uL (0.0-0.1); Basophils % 0.6 %; Eosinophils # 0.1 10^3/uL (0.0-0.8); Eosinophils % 0.8 %; Hematocrit 44.1 % (37.0-47.0); Hemoglobin 14.1 g/dL (11.5-15.3); Lymphocytes # 1.5 10^3/uL (0.8-4.8); Mean Corpuscular Hemoglobin 27.4 pg (28.0-34.0); Mean Corpuscular Volume 85.8 fL (81-99); Mean Platelet Volume 9.9 fL (7.4-10.4); Monocytes # 0.5 10^3/uL (0.2-0.9); Monocytes % 6.2 %; Neutrophils # 5.68 10^3/uL (1.8-7.7); Nucleated Red Blood Cells % 0 %; Platelet Count 247 10^3/cmm (130-400); Red Blood Count 5.14 10^6/uL (4.1-5.3); Red Cell Distribution Width 12.8 % (12.1-15.1); White Blood Count 7.8 10^3/uL (4.0-10.0)
[2020-07-05 06:34] LABS: Anion Gap 17.4 (5-19); Blood Urea Nitrogen 12 mg/dL (8-23); Calcium 8.4 mg/dL (8.5-10.5); Carbon Dioxide 23 mmol/L (22-29); Chloride 109 mmol/L (98-107); Glomerular Filtration Rate 85.4 mL/min (90-130); Glucose 75 mg/dL (65-115); Osmolality Calculated 300 mOsm/kg (285-295); Potassium 3.4 mmol/L (3.5-5.1); Sodium 146 mmol/L (136-145)
--- NOTE | 2020-07-05 08:38 | PM.PN ---
Subjective Subjective: Interval history: She is non-verbal. Vitals/I&O/Wt Last Vital Signs Temp 99.1 F 07/05/20 04:00 Pulse 51 L 07/05/20 06:00 Resp 24 H 07/05/20 06:00 BP 117/61 07/05/20 06:00 Pulse Ox 71 L 07/05/20 06:00 07/04/20 07/05/20 07/05/20 22:59 06:59 14:59 Intake Total 955 / 955 Output Total 775 / 775 300 / 1075 Balance 180 / 180 -300 / -120 Weight last 48 hrs Weight 50.077 kg Weight 50 kg Physical Exam Const: COMMON NORMALS: no acute distress GENERAL APPEARANCE: frail appearing; not cooperative ORIENTATION/CONSCIOUSNESS: Yes awake and Yes confused OTHER: Moving her arms and legs and lifting them up in the air. Makes eye contact, does not respond or follow commands. HENMT: COMMON NORMALS: oropharynx normal Neck/C-Spine: COMMON NORMALS: no JVD Resp: COMMON NORMALS: normal respiratory effort and clear to auscultation bilaterally AUSCULTATION: clear to auscultation bilaterally Cardio: COMMON NORMALS: no JVD, regular rhythm, S1 normal heart sound present, S2 normal heart sound present and No murmurs present (Cardio) RHYTHM: regular rhythm HEART SOUNDS: S1 normal heart sound present and S2 normal heart sound present GI: COMMON NORMALS: Normal to inspection, nondistended, normoactive bowel sounds present, Soft to palpation and non-tender PALPATION: Yes Soft to palpation Extremity: COMMON NORMALS: no joint enlargement and no pedal edema Neuro: COMMON NORMALS: moves all extremities Skin: COMMON NORMALS: no rashes or lesions noted GENERAL SKIN EXAM: no rashes or lesions noted Urinary Catheter Management^: Dobbins: Cath Placed During This Visit: yes Reason for Continuing Indwelling Catheter: Acute Urinary Retention or Obstruction Urinary Catheter Date of Insertion: 07/02/20 Urinary Catheter Time of Insertion: 22:32 Data : 07/05/20 06:07 07/05/20 06:07 Micro: Microbiology 07/02/20 22:23 Urine Culture - Preliminary Urine,Clean Catch Gram Negative Rods A&P Assessment and plan (1) Acute encephalopathy: She has been more alert, however, still unable to follow cues enough to safely swallow food. Nonverbal, not cooperating, although this may be her baseline. At this time we will continue treatment of metabolic abnormalities, UTI, monitor bradycardia, continue reassessments for improvement of encephalopathy to initiate oral intake. Acute encephalopathy, metabolic and infection related. Continue treatment of acute hypernatremia, dehydration. UTI. Status: Acute (2) Acute hypernatremia: Sodium down to 146. Hold further IVF. Status: Acute (3) Sinus bradycardia: Intermittent HR down to as low as high 30s. Episodes of softer blood pressure overnight down to 89/49. No block visible on telemetry. Not on isak blocking agents. No evidence of ACS. Thyroid function is normal. Suspect this is related to her metabolic derangements. Status: Acute (4) UTI (urinary tract infection): GNR. Follow culture. Continue ceftriaxone 1 g IV every 24 hours daily. Status: Acute (5) Hypothyroidism: Continue levothyroxine 12.5 mcg Status: Acute (6) Frontotemporal dementia: She follows with a neurologist Dr. Stapleton. Status: Acute Additional A&P Information Hypokalemia: replace DVT prophylaxis: Lovenox 40 subcu daily CODE STATUS: Full code, discussed w , he is not sure that full code would be an appropriate code status given her advanced dementia. He is going to think about this further. Disposition: Home Attestations Medical Necessity Statement*: Continue admission for abscess management of acute encephalopathy, metabolic abnormality with hyponatremia, sinus bradycardia, UTI. Coding Level of Care Code Acute Protection Consultant for g Fwd Diagnoses Acute encephalopathy G93.40 Acute hypernatremia E87.0 Sinus bradycardia R00.1 UTI (urinary tract infection) N39.0 Hypothyroidism E03.9 Frontotemporal dementia G31.09; F02.80
[2020-07-05] MEDS: OLANZapine 5 mg TABLET 2.5 MG PO (08:46)
[2020-07-05] MEDS: levothyroxine 25 mcg Tablet 12.5 MCG PO (08:46)
[2020-07-05] MEDS: enoxaparin 40 mg/0.4 mL Syringe SUBCUT (08:48)
[2020-07-05] MEDS: potassium chloride premix 100 ML 50 MEQ IV (09:00)
[2020-07-05 12:58] LABS: Sodium 146 mmol/L (136-145)
[2020-07-05 18:39] LABS: Sodium 147 mmol/L (136-145)
[2020-07-05] MEDS: dextrose 5% 1,000 ML 30 ML IV (19:31)
--- NOTE | 2020-07-05 21:01 | PC.NURSE ---
Patient received from ICU via bed. Patient is non-verbal. Will follow with eyes. Patient has D5 at 30ml/hr. Observed possible infiltration to right arm. Noted IV to right hand to be wrapped with narrow coban that had pulled extremely tight. Removed coban and replaced with wide coban more loosely. Patient does not appear to be in pain at this time. Dobbins in place.
[2020-07-06] VITALS (9 sets, daily range): BP systolic 96–138; BP diastolic 55–103; PULSE 43–66; RESP 16–24; TEMP 36.3–37.1; O2SAT 91–99
[2020-07-06 01:15] LABS: Sodium 146 mmol/L (136-145)
[2020-07-06] MEDS: cefTRIAXone 1,000 MG in sodium chloride 0.9% (plus) 50 ML 100 MG IV ×2 (01:30→23:58)
--- NOTE | 2020-07-06 02:53 | PC.NURSE ---
PT IS RESTING IN BED. PT IS NON VERBAL. ABT GIVEN LATE D/T BEING OFF FLOOR WITH ANOTHER PT. WILL CONTINUE TO MONITOR.
[2020-07-06 06:43] LABS: Glucose Point of Care 81 mg/dL (70-110)
[2020-07-06 06:43] LABS: Basophils # 0.1 10^3/uL (0.0-0.1); Basophils % 0.8 %; Eosinophils # 0.1 10^3/uL (0.0-0.8); Eosinophils % 1.3 %; Hemoglobin 14.9 g/dL (11.5-15.3); Lymphocytes % 16.7 %; Mean Corpuscular HGB Conc 32.4 g/dL (30.0-36.0); Mean Corpuscular Hemoglobin 27.2 pg (28.0-34.0); Mean Corpuscular Volume 84.1 fL (81-99); Mean Platelet Volume 10.2 fL (7.4-10.4); Monocytes # 0.5 10^3/uL (0.2-0.9); Monocytes % 7.4 %; Neutrophils # 4.58 10^3/uL (1.8-7.7); Neutrophils % 73.3 %; Nucleated Red Blood Cells % 0 %; Platelet Count 259 10^3/cmm (130-400); Red Blood Count 5.47 10^6/uL (4.1-5.3); Red Cell Distribution Width 12.8 % (12.1-15.1); White Blood Count 6.2 10^3/uL (4.0-10.0)
[2020-07-06 06:52] LABS: Anion Gap 15.4 (5-19); Blood Urea Nitrogen 11 mg/dL (8-23); Calcium 8.8 mg/dL (8.5-10.5); Carbon Dioxide 26 mmol/L (22-29); Chloride 106 mmol/L (98-107); Glomerular Filtration Rate 85.4 mL/min (90-130); Glucose 101 mg/dL (65-115); Osmolality Calculated 298 mOsm/kg (285-295); Potassium 3.4 mmol/L (3.5-5.1); Sodium 144 mmol/L (136-145)
[2020-07-06 07:01] LABS: Magnesium 2.1 mg/dL (1.7-2.3)
[2020-07-06] MEDS: enoxaparin 40 mg/0.4 mL Syringe SUBCUT (08:50)
--- NOTE | 2020-07-06 08:51 | PC.NURSE ---
attempted to give morning po medications to patient; patient unable to follow commands even with thickened water patient was unable to swallow appropriately pills removed from patient mouth and disposed of appropriately. Dr davila notified
--- NOTE | 2020-07-06 09:33 | PC.CHAP ---
Pastoral Care Encounter/Spiritual Assessment Type of Contact [] Declined retirement benefits specialist visit [] Patient/Family/Request visit [] Outpatient visit [] Follow-up visit [] Physician referral [] Code/Alert [] Routine visit [] Staff referral [] Actively dying [] Patient sleeping [] Family support [] [] Out of room [] Palliative care [] [] Receiving care in room [] Pre-surgical visit [] Trauma [] Long length of stay [] ICU visit [] Other: Relational/Emotional Strength [] Patient feels connected with others/family/visitors/staff [] Distress [] Loneliness/isolation [] Abandonment Spirituality of Patient [] Person of [place] [] Attends Mu-Ism of their [place] [] Believes in Prayer [] Reads Bible or Moravian materials [] There are Spiritual issues to be addressed Household Chores Interventions [x] Prayer [] Active listening [] Non-anxious presence [] Spiritual/emotional support [] Crisis/trauma care [] Spiritual counseling [] Bereavement support [] Provided bereavement packet [] Provided Bible/devotional materials [] Provided toy/stuffed animal, coloring book to patient or family member [] Provided Communion [] Anointing/[place] [] Salvation [x] Completed spiritual assessment [] Other: Impact on Illness or Injury [] Angry [] Fearful [] Anxious [] Often cries [] Exhaustion [] Unable to work [] Unable to attend amish [] Unable to walk/stand [] Unable to read [] Unable to drive [] Unable to eat/drink [] Unable to sleep [] Unable to be with family [] Patient intubated [] Other: Summary patient unable to communicate.. Time spent with patient
[2020-07-06 13:04] LABS: Sodium 144 mmol/L (136-145)
[2020-07-06 19:12] LABS: Sodium 143 mmol/L (136-145)
--- NOTE | 2020-07-06 20:09 | PM.PN ---
Subjective Subjective: Interval history: Nonverbal, pinching her cheek rolling around getting wrapped in her bed sheets. Vitals/I&O/Wt Last Vital Signs Temp 97.9 F 07/06/20 19:21 Pulse 59 L 07/06/20 19:21 Resp 17 07/06/20 19:21 BP 111/60 07/06/20 19:21 Pulse Ox 95 07/06/20 19:21 07/06/20 07/06/20 07/06/20 06:59 14:59 22:59 Intake Total 50 / 1050 Output Total 400 / 1200 250 / 250 Balance -350 / -150 -250 / -250 Weight last 48 hrs Weight 52.362 kg Weight 50.077 kg Physical Exam Const: COMMON NORMALS: no acute distress GENERAL APPEARANCE: frail appearing; not cooperative ORIENTATION/CONSCIOUSNESS: Yes awake and Yes confused OTHER: Nonverbal. Not following commands. In her own world. Makes eye contact, does not respond or follow commands. HENMT: COMMON NORMALS: oropharynx normal Neck/C-Spine: COMMON NORMALS: no JVD Resp: COMMON NORMALS: normal respiratory effort and clear to auscultation bilaterally AUSCULTATION: clear to auscultation bilaterally Cardio: COMMON NORMALS: no JVD, regular rhythm, S1 normal heart sound present, S2 normal heart sound present and No murmurs present (Cardio) RHYTHM: regular rhythm HEART SOUNDS: S1 normal heart sound present and S2 normal heart sound present GI: COMMON NORMALS: Normal to inspection, nondistended, normoactive bowel sounds present, Soft to palpation and non-tender PALPATION: Yes Soft to palpation Extremity: COMMON NORMALS: no joint enlargement and no pedal edema Neuro: COMMON NORMALS: moves all extremities Skin: COMMON NORMALS: no rashes or lesions noted GENERAL SKIN EXAM: no rashes or lesions noted Urinary Catheter Management^: Dobbins: Cath Placed During This Visit: yes Reason for Continuing Indwelling Catheter: Accurate Measurement of Urinary Output in Critically Ill Patients Urinary Catheter Date of Insertion: 07/02/20 Urinary Catheter Time of Insertion: 22:32 Data : 07/06/20 06:27 07/06/20 18:25 A&P Assessment and plan (1) Acute encephalopathy: Discussed with her . Unfortunately it appears that her symptoms are due to progression of dementia given there is no improvement in either ability due to interact with the world around her or even take an oral nutrition or hydration despite correction of metabolic abnormality, dehydration, and treatment of UTI with susceptible organism. We had a detailed discussion about her condition, possible causes, and treatments so far. Her states they never had a direct conversation about a similar situation, however, on looking back about her other expressed preferences in the life he states he surmises she would rather not want a feeding tube, which is reasonable as it would not add to her quality of life, and instead would expose her to additional risks. On consideration of goals of care decides that they will proceed with hospice care and comfort measures. She should be ready for discharge home with hospice care tomorrow. She will also receive her last dose of antibiotic. Status: Acute (2) Acute hypernatremia: Sodium down to 143. Hold further IVF. Status: Acute (3) Sinus bradycardia: Heart rate with improvement, 50s-60s. Blood pressure stable. No block visible on telemetry. Not on isak blocking agents. No evidence of ACS. Thyroid function is normal. Status: Acute (4) UTI (urinary tract infection): Proteus sensitive to Rocephin. Follow culture. Continue ceftriaxone 1 g IV every 24 hours daily. Status: Acute (5) Hypothyroidism: Continue levothyroxine 12.5 mcg Status: Acute (6) Frontotemporal dementia: She follows with a neurologist Dr. Stapleton. Status: Acute Additional A&P Information Hypokalemia: replaced DVT prophylaxis: Lovenox 40 subcu daily CODE STATUS: Full code, discussed w , he is not sure that full code would be an appropriate code status given her advanced dementia. He is going to think about this further. Disposition: Home with hospice Continue hospitalization preparation for transition to hospice care at home, completion of her antibiotic therapy for UTI given inability to take any oral medications. Attestations Medical Necessity Statement*: Continue admission for assessment of management of progressive encephalopathy, inability to continue oral feeding, goals of care discussions, disposition planning and arrangements. Coding Level of Care Code Acute Test Boring Crew Chief for Nicki Sage Diagnoses Acute encephalopathy G93.40 Acute hypernatremia E87.0 Sinus bradycardia R00.1 UTI (urinary tract infection) N39.0 Hypothyroidism E03.9 Frontotemporal dementia G31.09; F02.80
[2020-07-06] MEDS: potassium chloride premix 100 ML 25 MEQ IV (21:39)
[2020-07-06] MEDS: dextrose 5% 1,000 ML 30 ML IV (21:53)
[2020-07-07] VITALS (7 sets, daily range): BP systolic 81–122; BP diastolic 52–70; PULSE 47–85; RESP 16–20; TEMP 36.5–36.8; O2SAT 98–99
--- NOTE | 2020-07-07 05:46 | PC.NURSE ---
PT IS RESTING IN BED. WILL CONTINUE TO MONITOR.
[2020-07-07] MEDS: enoxaparin 40 mg/0.4 mL Syringe SUBCUT (10:57)
--- NOTE | 2020-07-07 14:36 | PC.NURSE ---
Telephone order from Dr. Mcclain to leave patel catheter for comfort measures at discharge. RBTO.
--- NOTE | 2020-07-07 14:54 | PC.NURSE ---
Discharge information given to patient's . He verbalized understanding of teaching and did not have any further questions. IVs have been removed. No further needs identified at this time.
--- NOTE | 2020-07-07 18:00 | PM.DCS ---
Discharge Providers Date of Admission: 07/02/20 23:16 Date of Discharge: July 07, 2020 Attending Provider at Admission: Horace Miner MD Attending Provider at Discharge: Santhosh Mcclain Diagnoses at Discharge Discharge Diagnosis (1) Acute encephalopathy: Status: Acute (2) Acute hypernatremia: Status: Acute (3) Sinus bradycardia: Status: Acute (4) UTI (urinary tract infection): Status: Acute (5) Hypothyroidism: Status: Acute (6) Frontotemporal dementia: Status: Acute Reason for Visit Reason for Visit: No food/drink intake Hospital Course Hospital Course 60-year-old lady with progressively worsening frontotemporal dementia, hypothyroidism, nonverbal at baseline, requiring total assistance, with poor oral intake at baseline, was admitted due to change in mental status, noted no longer ambulatory, and with feeding not taking any food. On admission CT of the head found no acute abnormalities. Chest x-ray noted without acute abnormalities. Noted severely hyponatremic with sodium 160. TSH normal at 2.6. UA suspicious for UTI with 25-40 WBC, nitrite positive, positive leukocyte esterase. She received IV hydration for dehydration, hyponatremia, with gradual sodium decreased. This eventually normalized. UTI was treated with Rocephin. Eventually growing Proteus mirabilis in urine resistant to nitrofurantoin and tetracycline. Despite improvement in alertness compared to initial presentation, she unfortunately did not improve any further in terms of ability to follow commands to safely participate with speech therapy or even follow commands enough to swallow. She remains nonverbal which is her baseline, and noninteractive, not following any commands. Appeared calm, not in distress. Vital signs remained stable without any signs of sepsis. Mild hypokalemia was replaced. Other metabolic abnormalities normalized. With initial metabolic derangements was noted to have also sinus bradycardia, heart rates down as low as high 30s, transiently with low blood pressure. Required 1 dose of atropine. Echocardiogram was obtained with normal ejection fraction, normal diastolic function, no valvular heart disease was seen. This subsequently gradually improved, with heart rate staying in the 50s-60s, blood pressures normal, and unfortunately still no changes in cognitive or functional capacity. As despite work-up and treatment reversible cause could not be identified, her functional decline and inability to feed with failure to thrive are likely unfortunately related to progression of her dementia. Her condition was discussed with her , including a number of alternative options of proceeding forward. Although her states they had not had a direct conversation about this exact scenario, based on his prior knowledge he did not think that she would want a feeding tube for nutritional support, and this also would not likely lead to improvement in quality of life or significant prolongation thereof either. The option of hospice care, with comfort and pleasure feeds was discussed, and felt that this was a more reasonable choice and more in line with what she may have wanted. Case coordination assisted him in setting up the service, and she returned to continue comfort measures at home. Physical Exam Const: COMMON NORMALS: no acute distress and alert GENERAL APPEARANCE: frail appearing; not cooperative ORIENTATION/CONSCIOUSNESS: Yes awake and Yes confused OTHER: Nonverbal. Not following commands. Appears calm. Not interacting with anything around her. Occasionally moving her arms around. Rolling her legs onto the bed rail. HENMT: COMMON NORMALS: oropharynx normal Neck/C-Spine: COMMON NORMALS: no JVD; negative for no meningeal signs Resp: COMMON NORMALS: normal respiratory effort and clear to auscultation bilaterally AUSCULTATION: clear to auscultation bilaterally Cardio: COMMON NORMALS: no JVD, regular rhythm, S1 normal heart sound present, S2 normal heart sound present and No murmurs present (Cardio) RHYTHM: regular rhythm HEART SOUNDS: S1 normal heart sound present and S2 normal heart sound present GI: COMMON NORMALS: Normal to inspection, nondistended, normoactive bowel sounds present, Soft to palpation and non-tender PALPATION: Yes Soft to palpation Extremity: COMMON NORMALS: no joint enlargement and no pedal edema Neuro: COMMON NORMALS: moves all extremities SENSORIUM/ORIENTATION: Yes alert and Yes other (Non-verbal. Not cooperative. ) MENINGEAL SIGNS: No no meningeal signs Skin: COMMON NORMALS: no rashes or lesions noted GENERAL SKIN EXAM: no rashes or lesions noted Urinary Catheter Management^: Dobbins: Cath Placed During This Visit: yes Reason for Continuing Indwelling Catheter: Accurate Measurement of Urinary Output in Critically Ill Patients Urinary Catheter Date of Insertion: 07/02/20 Urinary Catheter Time of Insertion: 22:32 Discharge Data Data Completed and Pending: Completed Studies During Hospitalization Category Date Time Status CT head wo con* 7 0450 Stat Cat Scan 07/02/20 20:28 Completed XR chest 1V binh ble 59097 Stat Exams 07/02/20 20:28 Completed CV echo complete* [id number] Routine Ultrasound 07/04/20 07:53 Completed Labs from last 24 hours 07/06/20 18:25 Sodium 143 Vitals: Last Vital Signs Temp 98.1 F 07/07/20 14:52 Pulse 85 07/07/20 14:52 Resp 20 H 07/07/20 14:52 BP 122/70 07/07/20 14:52 Pulse Ox 98 07/07/20 14:52 Discharge Plan Discharge Patient Disposition: Hospice - Home Condition: Stable Prescriptions: New morphine 20 mg/5 mL (4 mg/mL) solution 2.5 mg PO Q2H PRN (Reason: pain) Qty: 100 RF: 0 Lorazepam Intensol 2 mg/mL concentrate 0.25 mg PO DAILY PRN (Reason: anxiety) Qty: 30 RF: 0 Continued olanzapine 2.5 mg tablet 2.5 mg PO DAILY RF: 0 levothyroxine [Euthyrox] 25 mcg tablet 12.5 mcg PO DAILY RF: 0 Discharge Orders: Discharge Order (Routine); Ordered 07/07/20 Ordered By: Santhosh Mcclain Referrals: Samira Yo APRN [Referring] - 4-7 days ([facility] will be calling to set up a hospital followup with Samira Yo APRN to be seen in 4 to 7 days. If you don't hear from them by Thursday, please give them a call. Thank you) Discharge Diet: Advance as tolerated Patient Instructions: Lorazepam (By mouth), Morphine, Rapid Release (By mouth), Hospice Care (GEN), How to Prevent Pressure Ulcers (DC) Activity Restrictions/Additional Instructions: Food and drink as tolerated with hand feeding to help her feel texture, taste of food. Continue usual care. Reposition frequently to prevent pressure ulcers. Comfort measures as per hospice. 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
== END 2020-07-07 14:54 | disposition hospice, home (50) | DRG 689 ==
LOC: ER 23:46 → ICU 07-03 00:06 → CSU 07-05 20:47
PROVIDERS: Admitting Provider Internal Medicine; Emergency Provider Emergency Medicine; PCP Nurse Practitioner Family; Visit Provider Internal Medicine
DX: N39.0 Urinary tract infection, site not specified (principal); G93.41 Metabolic encephalopathy; E87.1 Hypo-osmolality and hyponatremia; E03.9 Hypothyroidism, unspecified; F03.90 Unspecified dementia, unspecified severity, without behavioral disturbance, psychotic disturbance, mood disturbance, and anxiety; R32 Unspecified urinary incontinence; R00.1 Bradycardia, unspecified; E86.0 Dehydration; B96.4 Proteus (mirabilis) (morganii) as the cause of diseases classified elsewhere
CPT/HCPCS: 12345; 36415; 36416; 51702; 70450; 71045; 80048; 80053; 81001; 82962; 83036; 83605; 83690; 83735; 84100; 84145; 84295; 84439; 84443; 84484; 85025; 85610; 87077; 87086; 87186; 92526; 92610; 93005; 93306; 96372; 99283; J0461; J0696; J1650; J3480; J7030